=== PATIENT | female | born 1965 | race Caucasian/White ===

== ENCOUNTER 2025-03-08 08:47 | Outpatient (REF) | payer OTHER, SELFPAY ==
--- NOTE | ~2025-03-08 | XR_ITS ---
EXAMINATION: XR SHOULDER, RIGHT CLINICAL INFORMATION: M25.519 - Pain in unspecified shoulder COMPARISON: None available. TECHNIQUE: Three views of the right shoulder. FINDINGS: No acute fracture or dislocation. Mild glenohumeral arthritis. No suspicious bony lesions. No abnormal soft tissue calcification. XR/XR shoulder RT min 2V IMPRESSION: No acute findings Electronically signed by: German Neff MD 03/09/2025 12:14 PM [facility]
== END 2025-03-08 08:48 | disposition home or self-care (01) ==
LOC: HO.HOSX 08:47
PROVIDERS: Visit Provider Physician Assistant
DX: M75.101 Unspecified rotator cuff tear or rupture of right shoulder, not specified as traumatic (principal); M12.811 Other specific arthropathies, not elsewhere classified, right shoulder; M25.559 Pain in unspecified hip
CPT/HCPCS: 73030

== ENCOUNTER 2025-03-08 12:50 | Outpatient (AMB) | payer OTHER, SELFPAY ==
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
[2025-03-08 13:09] VITALS: BMI 23.8
== END 2025-03-08 13:26 | disposition home or self-care (01) ==
PROVIDERS: PCP Internal Medicine; Visit Provider Physician Assistant
DX: M75.101 Unspecified rotator cuff tear or rupture of right shoulder, not specified as traumatic (principal); M12.811 Other specific arthropathies, not elsewhere classified, right shoulder
CPT/HCPCS: 99213; G2211

== ENCOUNTER → 2025-03-08 12:58 | Outpatient (BNV) | payer OTHER, SELFPAY | PROVIDERS: Visit Provider Radiology Diagnostic Ultrasound | DX: M25.511 Pain in right shoulder (principal) | CPT/HCPCS: 73030 ==